=== PATIENT | male | born 1990 | race American Indian/Alaskan Native ===

== ENCOUNTER 2020-09-03 23:51 | Emergency (ER) | payer SELFPAY ==
[2020-09-03] MEDS ORDERED: IBUPROFEN 800 MG TAB PO ONE (23:56)
[2020-09-03] MEDS ORDERED: dexAMETHasone 20 MG/5 ML VIAL IM ONE (23:56)
[2020-09-03] MEDS ORDERED: AMOXICILLIN/K CLAV 875/125MG TAB PO ONE (23:56)
--- NOTE | 2020-09-04 00:01 | Emergency Department Report ---
ED General Adult HPI - General Stated complaint: DIFF SWALLOWING Time Seen by Provider: 09/03/20 23:55 Source: patient, RN notes reviewed Limitations: No Limitations - History of Present Illness Initial comments: pt is a 29 y/o aam who presents for sore throat x 4 days, symptoms include malaise pain with swallowing, pt denies ear pain , no dizziness, no lightheadedness, no n/v, pt is tolerating po intake with moderate pain ,no throat swelling. - Related Data Previous Rx's Medication Instructions Recorded Last Taken Type Amoxicillin/Potassium Clav 1 each PO BID 10 Days #20 tablet 09/04/20 Unknown Rx [Augmentin 875-125 Tablet] Dexamethasone [Decadron] 6 mg PO BID 3 Days #6 tablet NS 09/04/20 Unknown Rx Ibuprofen [Motrin 400 MG tab] 800 mg PO Q8H PRN #30 tablet 09/04/20 Unknown Rx Allergies Allergy/AdvReac Type Severity Reaction Status Date / Time No Known Allergies Allergy Verified 09/03/20 23:58 ED Review of Systems ROS: Stated complaint: DIFF SWALLOWING Other details as noted in HPI Constitutional: no symptoms reported, chills, fever, malaise Eyes: denies: eye pain, eye discharge, vision change ENT: throat pain. denies: ear pain, dental pain, epistaxis, congestion Respiratory: denies: cough, shortness of breath, wheezing Cardiovascular: denies: chest pain, palpitations Endocrine: no symptoms reported Gastrointestinal: denies: abdominal pain, nausea, diarrhea Genitourinary: denies: urgency, dysuria Musculoskeletal: denies: back pain, joint swelling, arthralgia Skin: denies: rash, lesions Neurological: denies: headache, weakness, paresthesias Psychiatric: denies: anxiety, depression Hematological/Lymphatic: denies: easy bleeding, easy bruising ED Past Medical Hx - Medications Home Medications: Home Medications Medication Instructions Recorded Confirmed Last Taken Type Amoxicillin/Potassium Clav 1 each PO BID 10 Days #20 tablet 09/04/20 Unknown Rx [Augmentin 875-125 Tablet] Dexamethasone [Decadron] 6 mg PO BID 3 Days #6 tablet NS 09/04/20 Unknown Rx Ibuprofen [Motrin 400 MG tab] 800 mg PO Q8H PRN #30 tablet 09/04/20 Unknown Rx ED Physical Exam - General General appearance: alert, in no apparent distress - Head Head exam: Present: atraumatic, normocephalic - Eye Eye exam: Present: normal appearance, EOMI Pupils: Present: normal accommodation - ENT ENT exam: Present: mucous membranes moist - Expanded ENT Exam Expanded Throat exam: Positive: tonsillar erythema, tonsillomegaly, tonsillar exudate, other (uvula midline , moderate yellow exudate, moderat erythema, airway is patent ). Negative: R peritonsillar mass, L peritonsillar mass - Neck Neck exam: Present: normal inspection, full ROM, lymphadenopathy. Absent: tenderness, meningismus - Expanded Neck Exam Expanded Neck exam: Absent: midline deformity, anterior neck swelling, thyroid mass, carotid bruit, tracheal deviation - Respiratory Respiratory exam: Present: normal lung sounds bilaterally. Absent: respiratory distress, wheezes, stridor, chest wall tenderness - Cardiovascular Cardiovascular Exam: Present: regular rate, normal rhythm, normal heart sounds. Absent: systolic murmur, diastolic murmur, rubs, gallop - GI/Abdominal GI/Abdominal exam: Present: soft, normal bowel sounds. Absent: distended, tenderness - Rectal Rectal exam: Present: deferred - Extremities Exam Extremities exam: Present: normal inspection, full ROM. Absent: tenderness - Back Exam Back exam: Present: normal inspection, full ROM. Absent: tenderness - Neurological Exam Neurological exam: Present: alert, oriented X3, CN II-XII intact, normal gait - Expanded Neurological Exam Expanded Patient oriented to: Present: person, place, time Speech: Present: fluid speech Cranial nerves: Gag Reflex: Normal Best Eye Response ([place]): (4) open spontaneously Best Motor Response ([place]): (6) obeys commands Best Verbal Response ([place]): (5) oriented [place] Total: 15 - Psychiatric Psychiatric exam: Present: normal affect, normal mood - Skin Skin exam: Present: warm, dry, intact, normal color ED Course Vital Signs 09/03/20 09/04/20 23:58 00:00 Temperature 99.2 F Pulse Rate 68 Respiratory 18 Rate Blood Pressure 171/93 [Right] O2 Sat by Pulse 97 97 Oximetry ED Medical Decision Making - Medical Decision Making this is pharyngitis, plan tx with Decadron, ibuprofen, augmenting, follow up with primary care docotor in 2-3 Critical care attestation.: If time is entered above; I have spent that time in minutes in the direct care of this critically ill patient, excluding procedure time. ED Disposition Clinical Impression: Pharyngitis Qualifiers: Pharyngitis/tonsillitis etiology: unspecified etiology Qualified Code(s): J02.9 - Acute pharyngitis, unspecified Disposition: TO HOME OR SELFCARE Is pt being admited?: No Does the pt Need Aspirin: No Condition: Stable Instructions: Strep Throat, Adult Prescriptions: Amoxicillin/Potassium Clav [Augmentin 875-125 Tablet] 1 each PO BID 10 Days #20 tablet Dexamethasone [Decadron] 6 mg PO BID 3 Days #6 tablet NS Ibuprofen [Motrin 400 MG tab] 800 mg PO Q8H PRN #30 tablet PRN Reason: Pain , Severe (7-10) Referrals: FRANCISCO J LOPES MD [Staff Physician] - 3-5 Days Forms: Work/School Release Form(ED) Time of Disposition: 00:27
[2020-09-04 00:05] VITALS: BP 171/93
[2020-09-04] MEDS ORDERED: IBUPROFEN 800 MG TAB PO ONE (01:00)
[2020-09-04] MEDS ORDERED: AMOXICILLIN/K CLAV 875/125MG TAB PO ONE ×2 (01:01→01:02)
== END 2020-09-04 00:50 | disposition home or self-care (01) ==
LOC: ED 23:51
DX: J02.9 Acute pharyngitis, unspecified (principal); Z79.899 Other long term (current) drug therapy
CPT/HCPCS: 96372; 99282; J1100

== ENCOUNTER 2021-03-31 20:36 | Emergency (ER) | payer SELFPAY | END 2021-04-01 05:21 | disposition home or self-care (01) | LOC: ED 20:36 | DX: R06.00 Dyspnea, unspecified (principal); Z53.21 Procedure and treatment not carried out due to patient leaving prior to being seen by health care provider ==

== ENCOUNTER 2021-06-15 13:16 | Emergency (ER) | payer SELFPAY ==
--- NOTE | 2021-06-15 13:33 | Emergency Department Report ---
ED General Adult HPI - General Chief complaint: GI Bleed Stated complaint: RECTAL BLEED Time Seen by Provider: 06/15/21 13:23 Source: patient Mode of arrival: Ambulatory Limitations: No Limitations - History of Present Illness Initial comments: Patient is 30 years old male with no significant past medical history. Patient presented to the ER complaining of rectal pain, discharge blood sometimes. Patient stated that symptoms been going on for 4 weeks now. Patient stated that he has anal intercourse approximately 1 month ago and since then he had this issue. Patient denied any fever or chills. No nausea or vomiting. Patient also denied any hematemesis, hemoptysis or hematuria. Severity scale (0 -10): 6 - Related Data Previous Rx's Medication Instructions Recorded Last Taken Type Amoxicillin/Potassium Clav 1 each PO BID 10 Days #20 tablet 09/04/20 Unknown Rx [Augmentin 875-125 Tablet] Dexamethasone [Decadron] 6 mg PO BID 3 Days #6 tablet NS 09/04/20 Unknown Rx Ibuprofen [Motrin 400 MG tab] 800 mg PO Q8H PRN #30 tablet 09/04/20 Unknown Rx Allergies Allergy/AdvReac Type Severity Reaction Status Date / Time No Known Allergies Allergy Verified 09/03/20 23:58 ED Review of Systems ROS: Stated complaint: RECTAL BLEED Other details as noted in HPI Comment: All other systems reviewed and negative Constitutional: denies: chills, fever Respiratory: denies: cough, shortness of breath Cardiovascular: denies: chest pain Gastrointestinal: denies: abdominal pain, nausea Genitourinary: denies: discharge, testicular pain Musculoskeletal: denies: back pain ED Past Medical Hx - Social History Smoking Status: Current Every Day Smoker Substance Use Type: None - Medications Home Medications: Home Medications Medication Instructions Recorded Confirmed Last Taken Type Amoxicillin/Potassium Clav 1 each PO BID 10 Days #20 tablet 09/04/20 Unknown Rx [Augmentin 875-125 Tablet] Dexamethasone [Decadron] 6 mg PO BID 3 Days #6 tablet NS 09/04/20 Unknown Rx Ibuprofen [Motrin 400 MG tab] 800 mg PO Q8H PRN #30 tablet 09/04/20 Unknown Rx ED Physical Exam - General Limitations: No Limitations General appearance: alert, in no apparent distress - Head Head exam: Present: atraumatic, normocephalic, normal inspection - Eye Eye exam: Present: normal appearance - ENT ENT exam: Present: normal exam, normal orophraynx, mucous membranes moist - Neck Neck exam: Present: normal inspection, full ROM. Absent: tenderness, meningismus - Respiratory Respiratory exam: Present: normal lung sounds bilaterally - Cardiovascular Cardiovascular Exam: Present: regular rate, normal rhythm, normal heart sounds - GI/Abdominal GI/Abdominal exam: Present: soft, normal bowel sounds. Absent: distended, tenderness, guarding, rebound, rigid, mass, bruit, pulsatile mass, hernia - Rectal Rectal exam: Present: normal inspection, normal rectal tone, heme (-) stool, tenderness. Absent: bloody stool, fecal impaction, hemorrhoids, mass - Extremities Exam Extremities exam: Present: normal inspection, full ROM, normal capillary refill. Absent: tenderness - Back Exam Back exam: Present: normal inspection, full ROM. Absent: CVA tenderness (R), CVA tenderness (L) - Neurological Exam Neurological exam: Present: alert, oriented X3, CN II-XII intact - Psychiatric Psychiatric exam: Present: normal mood - Skin Skin exam: Present: warm, intact, normal color ED Course Vital Signs 06/15/21 06/15/21 06/15/21 13:19 13:28 16:25 Temperature 99.1 F 99 F Pulse Rate 78 74 Respiratory 18 18 Rate Blood Pressure 148/87 128/78 [Right] O2 Sat by Pulse 98 98 97 Oximetry ED Medical Decision Making - Lab Data Result diagrams: 06/15/21 13:35 06/15/21 13:35 - Radiology Data Radiology results: report reviewed - Medical Decision Making Patient is 30 years old male with no significant past medical history. Patient presented to the ER complaining of rectal pain, discharge blood sometimes. Patient stated that symptoms been going on for 4 weeks now. Patient stated that he has anal intercourse approximately 1 month ago and since then he had this issue. Patient denied any fever or chills. No nausea or vomiting. Patient also denied any hematemesis, hemoptysis or hematuria. Labs reviewed and showed leukocytosis of 22,000. CT pelvis with IV contrast showed no perirectal or perianal abscess however there is some swelling this is most likely proctitis. Patient given Zosyn IV in the ER. Patient also given prescription for ciprofloxacin and Flagyl and advised to follow-up with his primary doctor in the next 2 to 3 days and to return to the ER if he develop any new symptoms. Critical care attestation.: If time is entered above; I have spent that time in minutes in the direct care of this critically ill patient, excluding procedure time. ED Disposition Clinical Impression: Acute proctitis Disposition: HOME / SELF CARE / HOMELESS Is pt being admited?: No Condition: Stable Instructions: Proctitis Referrals: PRIMARY CARE, [Primary Care Provider] - 3-5 Days Forms: Accompanied Note
[2021-06-15 14:22] LABS: Blood Urea Nitrogen 6 mg/dL (9-20); Calcium 8.7 mg/dL (8.4-10.2); Hemolysis Index 13
[2021-06-15 14:27] LABS: BUN/Creatinine Ratio 9
[2021-06-15 14:34] LABS: Hematocrit 38.7 % (35.5-45.6); Hemoglobin 13.3 gm/dl (11.8-15.2); Mean Corpuscular HGB Conc 34 % (32-34); Mean Corpuscular Volume 83 fl (84-94); Platelet Count 368 K/mm3 (140-440); Red Blood Count 4.69 M/mm3 (3.65-5.03); Red Cell Distribution Width 14.8 % (13.2-15.2)
[2021-06-15] MEDS ORDERED: PIPERACILLIN/TAZOBACTAM 3.375 3.375 GM/50 ML BAG IV ONE (14:57)
--- NOTE | 2021-06-15 16:06 | Cat Scan Report ---
. CT PELVIS WITH CONTRAST HISTORY: rectal pain and tenderness, WBC 22,000. COMPARISON: None. TECHNIQUE: CT images of the pelvis were obtained following administration of intravenous contrast. A ll CT scans at this location are performed using CT dose reduction for ALARA by means of automated ex posure control. CONTRAST: 100 ml of intravenous contrast administered. FINDINGS: Pelvis: There appears to be mild edema about the rectum and anus but no significant perirectal absce sses is identified. There is a small amount of air in the midline in the region of the anus. The pros awad and urinary bladder are normal. The visualized GI tract appears normal including the appendix. N o acute osseous abnormality identified. IMPRESSION: 1. No perirectal abscess identified. Mild swelling about the distal rectum and anus. Signer Name: Iain Alvarez MD Signed: 06/15/2021 4:02 PM Workstation Name: [id number]
[2021-06-15 16:26] VITALS: BP 128/78
[2021-06-15 17:44] LABS: Total Cells Counted 100
[2021-06-15 17:45] LABS: Platelet Estimate Consistent w Auto; RBC Morphology Normal
== END 2021-06-15 18:05 | disposition home or self-care (01) ==
LOC: ED 13:16
DX: K62.89 Other specified diseases of anus and rectum (principal); Z79.899 Other long term (current) drug therapy
CPT/HCPCS: 36415; 72193; 80048; 85007; 85025; 87040; 96365; 99284; J2543; Q9967